=== PATIENT | male | born 1960 | race Caucasian/White ===

== ENCOUNTER 2019-10-29 08:07 | Emergency (ER) | payer OTHER ==
[~2019-10-29] VITALS: Ht 182.8 cm; Wt 113.6 kg
[2019-10-29] MEDS ORDERED: NS IV 1000 ML 1,000 ML IV STA (08:34)
[2019-10-29] MEDS ORDERED: ONDANSETRON 4 MG/2 ML (SDV) Z0FRAN IVP STA (08:34)
--- NOTE | 2019-10-29 08:42 | ED General ---
General Chief Complaint: Dizziness/Syncope Stated Complaint: DIZZINESS Nursing Triage Note: Patient reports he woke at 5 am and was unable to go back to sleep, so he went downstairs and watched TV. He states he went back to bed around 0715 and the ceiling began "spinning." He also reports a flushed feeling and developed nausea while driving to the ED. Nursing Sepsis Screen: No Definite Risk Source of Information: Patient History of Present Illness Date Seen by Provider: Oct 29, 2019 Time Seen by Provider: 08:12 Initial Comments 59-year-old male presenting with complaints of feeling dizzy and lightheaded. He states he woke up early this morning and couldn't get back to sleep. He then dev eloped sudden onset of room spinning around 7:[address] to the Emergency Department he started feeling flushed and developed nausea. He felt like he was sweating this morning on the way to the emergency department and was getting nauseated. He did have dry heaves and nausea in the emergency department. He denies having pain anywhere. He states that he was feeling fine when he went to bed. He had this come on all of a sudden for him. He denies any ill contacts. He has had no diarrhea. He had a normal bowel movement yesterday. He denies having any headache or change in his vision. Allergies and Home Medications Allergies Coded Allergies: Penicillins (Verified Allergy, Unknown, 10/29/19) Home Medications Ondansetron 4 Mg Tab.rapdis, 4 MG PO Q6H PRN for NAUSEA/VOMITING Prescribed by: LACEY WASHINGTON on 10/29/19 1125 Patient Home Medication List Home Medication List Reviewed: Yes Review of Systems Review of Systems Constitutional: No chills; dizziness; No fever; malaise EENTM: No ear discharge, No ear pain, No blurred vision, No hoarseness, No nose congestion Respiratory: No cough Cardiovascular: No chest pain Gastrointestinal: No abdominal pain; nausea, vomiting Genitourinary: No dysuria Musculoskeletal: no symptoms reported Skin: no symptoms reported Psychiatric/Neurological: Denies Headache Hematologic/Lymphatic: No Symptoms Reported Past Efopweh-Vcqbvl-Eeyuyr Hx Past Med/Social Hx: Reviewed Nursing Past Med/Soc Hx Patient Social History Recent Foreign Travel: No Contact w/Someone Who Travel: No Recent Infectious Disease Expo: No Past Medical History Surgeries: No Cardiac: Yes High Cholesterol, Hypertension Physical Exam Vital Signs Vital Signs - First Documented 10/29/19 08:31 Temp 36.7 Pulse 78 Resp 18 B/P (MAP) 144/90 (108) Pulse Ox 93 O2 Delivery Room Air Capillary Refill : Less Than 3 Seconds Height, Weight, BMI Height: '" Weight: lbs. oz. kg; 33.00 BMI Method: General Appearance: WD/WN, Anxious, Other (diaphoretic) HEENT: PERRL/EOMI, Normal ENT Inspection, Pharynx Normal Neck: Full Range of Motion, Normal Inspection, Non Tender, Supple Respiratory: Chest Non Tender, Lungs Clear, Normal Breath Sounds, No Accessory Muscle Use, No Respiratory Distress Cardiovascular: Regular Rate, Rhythm, No Edema, Normal Peripheral Pulses Gastrointestinal: Normal Bowel Sounds, No Pulsatile Mass, Non Tender, Soft Rectal: Deferred Extremity: Normal Capillary Refill, No Pedal Edema Neurologic/Psychiatric: Alert, Oriented x3, No Motor/Sensory Deficits Skin: Normal Color, Diaphoresis Progress/Results/Core Measures Suspected Sepsis Recent Fever Within 48 Hours: No Infection Criteria Present: None New/Unexplained Altered Menta: No Sepsis Screen: No Definite Risk SIRS Temperature: Pulse: 78 Respiratory Rate: 18 Laboratory Tests 10/29/19 08:25: White Blood Count 7.0 Blood Pressure 144 /90 Mean: 108 Laboratory Tests 10/29/19 08:25: Creatinine 1.12, INR Comment 0.9, Platelet Count 243, Total Bilirubin 0.6 Results/Orders Lab Results Laboratory Tests Test 10/29/19 08:25 10/29/19 10:24 Range/Units White Blood Count 7.0 4.3-11.0 10^3/uL Red Blood Count 5.56 4.35-5.85 10^6/uL Hemoglobin 16.7 13.3-17.7 G/DL Hematocrit 50 40-54 % Mean Corpuscular Volume 91 80-99 FL Mean Corpuscular Hemoglobin 30 25-34 PG Mean Corpuscular Hemoglobin Concent 33 32-36 G/DL Red Cell Distribution Width 13.5 10.0-14.5 % Platelet Count 243 130-400 10^3/uL Mean Platelet Volume 10.1 7.4-10.4 FL Neutrophils (%) (Auto) 49 42-75 % Lymphocytes (%) (Auto) 37 12-44 % Monocytes (%) (Auto) 10 0-12 % Eosinophils (%) (Auto) 4 0-10 % Basophils (%) (Auto) 1 0-10 % Neutrophils # (Auto) 3.4 1.8-7.8 X 10^3 Lymphocytes # (Auto) 2.6 1.0-4.0 X 10^3 Monocytes # (Auto) 0.7 0.0-1.0 X 10^3 Eosinophils # (Auto) 0.3 0.0-0.3 10^3/uL Basophils # (Auto) 0.1 0.0-0.1 10^3/uL Prothrombin Time 12.7 12.2-14.7 SEC INR Comment 0.9 0.8-1.4 Activated Partial Thromboplast Time 23 L 24-35 SEC Sodium Level 139 135-145 MMOL/L Potassium Level 4.1 3.6-5.0 MMOL/L Chloride Level 103 98-107 MMOL/L Carbon Dioxide Level 23 21-32 MMOL/L Anion Gap 13 5-14 MMOL/L Blood Urea Nitrogen 21 H 7-18 MG/DL Creatinine 1.12 0.60-1.30 MG/DL Estimat Glomerular Filtration Rate > 60 BUN/Creatinine Ratio 19 Glucose Level 142 H 70-105 MG/DL Calcium Level 9.3 8.5-10.1 MG/DL Corrected Calcium 9.1 8.5-10.1 MG/DL Magnesium Level 2.0 1.6-2.4 MG/DL Total Bilirubin 0.6 0.1-1.0 MG/DL Aspartate Amino Transf (AST/SGOT) 36 H 5-34 U/L Alanine Aminotransferase (ALT/SGPT) 39 0-55 U/L Alkaline Phosphatase 78 40-136 U/L Troponin I < 0.30 <0.30 NG/ML Pro-B-Type Natriuretic Peptide 25.5 <75.0 PG/ML Total Protein 7.1 6.4-8.2 GM/DL Albumin 4.3 3.2-4.5 GM/DL Lipase 41 8-78 U/L Urine Color YELLOW Urine Clarity CLEAR Urine pH 7.0 5-9 Urine Specific [place] 1.015 L 1.016-1.022 Urine Protein NEGATIVE NEGATIVE Urine Glucose (UA) NEGATIVE NEGATIVE Urine Ketones NEGATIVE NEGATIVE Urine Nitrite NEGATIVE NEGATIVE Urine Bilirubin NEGATIVE NEGATIVE Urine Urobilinogen 0.2 < = 1.0 MG/DL Urine Leukocyte Esterase NEGATIVE NEGATIVE Urine RBC (Auto) NEGATIVE NEGATIVE Urine RBC NONE /HPF Urine WBC 0-2 /HPF Urine Squamous Epithelial Cells NONE /HPF Urine Crystals NONE /LPF Urine Bacteria NEGATIVE /HPF Urine Casts NONE /LPF Urine Mucus SMALL H /LPF Urine Culture Indicated NO My Orders Orders - LACEY WASHINGTON MD Ua Culture If Indicated (10/29/19 08:20) Cbc With Automated Diff (10/29/19 08:34) Magnesium (10/29/19 08:34) Ekg Tracing (10/29/19 08:34) Comprehensive Metabolic Panel (10/29/19 08:34) Protime With Inr (10/29/19 08:34) Partial Thromboplastin Time (10/29/19 08:34) Monitor-Rhythm Ecg Trace Only (10/29/19 08:34) Ed Iv/Invasive Line Start (10/29/19 08:34) Lipase (10/29/19 08:34) Troponin I Fs (10/29/19 08:34) Probnp Fs (10/29/19 08:34) Chest Pa/Lat (2 View) (10/29/19 08:34) Ns Iv 1000 Ml (Sodium Chloride 0.9%) (10/29/19 08:34) Ondansetron Injection (Zofran Injectio (10/29/19 08:34) Vital Signs/I&O 10/29/19 10/29/19 08:31 12:06 Temp 36.7 Pulse 78 65 Resp 18 16 B/P (MAP) 144/90 (108) 138/79 Pulse Ox 93 94 O2 Delivery Room Air Room Air Capillary Refill : Less Than 3 Seconds Blood Pressure Mean: 108 POS Progress Note #1: Progress Note Check basic labs and give IV fluids for hydration. Obtain electrocardiogram as well as chest x-ray to evaluate his sudden onset of dizziness. Progress Note #2: Progress Note No acute ST elevation or changes on his EKG. His chest x-ray is clear without acute abnormality. His CBC and chemistry did not show any acute abnormalities to explain his acute onset of dizziness and nausea with dry heaves. His fluids are infusing and the Zofran has been given. Will allow the medicine to work and recheck the patient to see if he is feeling any better. Progress Note #3: Progress Note On recheck patient was able to finally provide a urine specimen after the liter of fluids finished infusing. The urinalysis does not demonstrate any acute abnormality other than he had a specific gravity of 1.015. He was feeling better and was tolerating oral intake. Will discharge home with some Zofran ODT if needed. Encourage fluids and rest. Counseled that this may still just be a viral illness. Advised that his fasting glucose was slightly elevated at 142 and this may be from stress reaction with his dizziness and dry heaves but he should follow-up and get repeat fasting blood work to verify that this is not prediabetes or some borderline type 2 diabetes. Given information about the [facility] clinic for follow-up. ECG Initial ECG Impression Date: Oct 29, 2019 Initial ECG Impression Time: :19 Initial ECG Rate: 67 Initial ECG Rhythm: Normal Sinus Initial ECG Comparisson: No Previous ECG Available Comment Sinus rhythm with a heart rate of 67 bpm. ND interval 168 ms. QT interval 432 ms with a QT corrected interval 456 ms. He has low voltage in his precordial leads. He has no acute ST elevation. He has no prior tracings for comparison. Diagnostic Imaging Diagonstic Imaging: Xray Plain Films/CT/US/NM/MRI: chest Comments NAME: BERTHA HERZOG MED REC#: [id number] PT STATUS: REG ER : 1960 PHYSICIAN: LACEY WASHINGTON MD ADMIT DATE: 10/29/19/ER FS Signed POSDate of Exam:10/29/19 CHEST PA/LAT (2 VIEW) CHEST PA/LAT (2 VIEW) Indication: Dizziness and nausea Comparison: None available. Findings: No pulmonary mass or consolidation. No pleural effusion or pneumothorax. Normal heart size and mediastinal contours. Impression: No acute cardiopulmonary process. Dictated by: Dictated on workstation # [id number] Dict: 10/29/19916 Trans: 10/29/19916 [facility] [id number] Interpreted by: ALEC DRISCOLL MD Electronically signed by: ALEC DRISCOLL MD 10/29/19916 Departure Impression Primary Impression: Dizziness Additional Impressions: Dehydration Viral syndrome Elevated fasting glucose Disposition: 01 HOME, SELF-CARE Condition: Improved Departure-Patient Inst. Decision time for Depature: 11:20 Referrals: NO,LOCAL PHYSICIAN (PCP) [place] Care Phys[place] [facility] [place] Instructions: Dizziness, Nonvertigo, (DC), Viral Syndrome (DC), Dehydration, Adult (DC) Add. Discharge Instructions: Make sure you are drinking plenty of fluids and staying well hydrated. Check back with clinic and get established with a primary provider for follow up and to recheck your fasting labs since your sugar was slightly elevated this morning. Get plenty of rest and drink plenty of fluids today. All discharge instructions reviewed with patient and/or family. Voiced unde rstanding. Scripts Ondansetron (Ondansetron Odt) 4 Mg Tab.rapdis 4 MG PO Q6H PRN for NAUSEA/VOMITING for 2 Days, #8 TAB 0 Refills Prov: LACEY WASHINGTON MD 10/29/19 LACEY WASHINGTON MD Oct 29, 2019 08:42 POS
[2019-10-29 08:47] LABS: BASOPHILS % (AUTO) 1 % (0-10); EOSINOPHILS % (AUTO) 4 % (0-10); HEMATOCRIT 50 % (40-54); HEMOGLOBIN 16.7 G/DL (13.3-17.7); LYMPHOCYTES # (AUTO) 2.6 X 10^3 (1.0-4.0); LYMPHOCYTES % (AUTO) 37 % (12-44); MEAN CORPUSCULAR HEMOGLOBIN 30 PG (25-34); MEAN CORPUSCULAR HGB CONC 33 G/DL (32-36); MEAN CORPUSCULAR VOLUME 91 FL (80-99); MEAN PLATELET VOLUME 10.1 FL (7.4-10.4); MONOCYTES # (AUTO) 0.7 X 10^3 (0.0-1.0); MONOCYTES % (AUTO) 10 % (0-12); NEUTROPHILS # (AUTO) 3.4 X 10^3 (1.8-7.8); NEUTROPHILS % (AUTO) 49 % (42-75); PLATELET COUNT 243 10^3/uL (130-400); RED CELL DISTRIBUTION WIDTH 13.5 % (10.0-14.5)
[2019-10-29 08:48] LABS: BASOPHILS # (AUTO) 0.1 10^3/uL (0.0-0.1); EOSINOPHILS # (AUTO) 0.3 10^3/uL (0.0-0.3)
[2019-10-29 09:09] LABS: INR 0.9 (0.8-1.4); PROTHROMBIN TIME PATIENT 12.7 SEC (12.2-14.7)
[2019-10-29 09:18] LABS: CARBON DIOXIDE 23 MMOL/L (21-32); CHLORIDE 103 MMOL/L (98-107); POTASSIUM 4.1 MMOL/L (3.6-5.0); SODIUM 139 MMOL/L (135-145)
[2019-10-29 09:19] LABS: ALANINE AMINOTRANSFERASE 39 U/L (0-55); ALBUMIN 4.3 GM/DL (3.2-4.5); ALKALINE PHOSPHATASE 78 U/L (40-136); BILIRUBIN,TOTAL 0.6 MG/DL (0.1-1.0); BUN/CREATININE RATIO 19; CALCIUM 9.3 MG/DL (8.5-10.1); CREATININE SERUM 1.12 MG/DL (0.60-1.30); GFR ESTIMATED > 60; GLUCOSE 142 MG/DL (70-105); LIPASE 41 U/L (8-78); TOTAL PROTEIN 7.1 GM/DL (6.4-8.2)
--- NOTE | 2019-10-29 09:19 | Diagnostic Imaging Report ---
CHEST PA/LAT (2 VIEW) Indication: Dizziness and nausea Comparison: None available. Findings: No pulmonary mass or consolidation. No pleural effusion or pneumothorax. Normal heart size and mediastinal contours. Impression: No acute cardiopulmonary process. Dictated by: Dictated on workstation # [id number]
[2019-10-29 10:52] LABS: CLARITY,URINE CLEAR; COLOR,URINE YELLOW; PROTEIN,URINE NEGATIVE (NEGATIVE)
[2019-10-29 10:53] LABS: BACTERIA,URINE NEGATIVE /HPF; BILIRUBIN,URINE NEGATIVE (NEGATIVE); GLUCOSE, URINE (UA) NEGATIVE (NEGATIVE); KETONES,URINE NEGATIVE (NEGATIVE); LEUKOCYTE ESTERASE ,URINE NEGATIVE (NEGATIVE); NITRITE,URINE NEGATIVE (NEGATIVE); WBC,URINE 0-2 /HPF
[2019-10-29] MEDS ORDERED: ONDA4TAB11 PO (11:25)
[2019-10-29 12:06] VITALS: BP 138/79
--- OUTSIDE RECORDS SUMMARY | 2019-11-24 05:53 | XMS REPORT | Continuity of Care Document ---
Author Organization Unknown Address Unknown Phone Unavailable Allergies Active Description Code Type Severity Reaction Onset Reported/Identified Relationship to Patient Clinical Status Yes Penicillins [id number] Drug Aller gy Unknown N/A 10/29/2019 Medications There is no data. Problems Date Dx Coded Attending Type Code Diagnosis Diagnosed By 11/02/2019 LACEY WASHINGTON MD, Ot B34.9 VIRAL INFECTION, UNSPECIFIED 11/02/2019 LACEY WASHINGTON MD, Ot E78.0 0 PURE HYPERCHOLESTEROLEMIA, UNSPECIFIED 11/02/2019 LACEY WASHINGTON MD, Ot E86.0 DEHYDRATION 11/02/2019 LACEY WASHINGTON MD, Ot I10 ESSENTIAL (PRIMARY) HYPERTENSION 11/02/2019 LACEY WASHINGTON MD, Ot R42 DIZZINESS AND GIDDINESS 11/02/2019 LACEY WASHINGTON MD, Ot R73.0 9 OTHER ABNORMAL GLUCOSE 11/02/2019 LACEY WASHINGTON MD, Ot Z88.0 ALLERGY STATUS TO PENICILLIN Procedures There is no data. Results Test Result Range Complete blood count (CBC) with automate d white blood cell (WBC) differential - 10/29/19 08:25 Blood leukocytes automated count (number/volume) 7.0 10*3/uL 4.3-11.0 Blood erythrocytes automated count (number/volume) 5.56 10*6/uL 4.35-5.85 Venous blood hemoglobin measurement (mass/volume) 16.7 g/dL 13.3-17.7 Blood hematocrit (volume fraction) 50 % 40-54 Automated erythrocyte mean corpuscular volume 91 [ foz_us] 80-99 Automated erythrocyte mean corpuscular h emoglobin (mass per erythrocyte) 30 pg 25-34 Automated erythrocyte mean corpuscular h emoglobin concentration measurement (mass/volume) 33 g/dL 32-36 Automated erythrocyte distribution width ratio 13. 5 % 10.0- 14.5 Automated blood platelet count (count/volume) 243 10*3/uL 130-400 Automated blood platelet mean volume measurement 10.1 [foz_us] 7.4-10.4 Automated blood neutrophils/100 leukocytes 49 % 42-75 Automated blood lymphocytes/100 leukocytes 37 % 12-44 Blood monocytes/100 leukocytes 10 % 0-12 Automated blood eosinophils/100 leukocytes 4 % 0-10 Automated blood basophils/100 leukocytes 1 % 0-10 Blood neutrophils automated count (number/volume) 3.4 10*3 1.8-7.8 Blood lymphocytes automated count (number/volume) 2.6 10*3 1.0-4.0 Blood monocytes automated count (number/volume) 0. 7 10*3 0.0-1.0 Automated eosinophil count 0.3 10*3/uL 0 .0-0.3 Automated blood basophil count (count/volume) 0.1 10*3/uL 0.0-0.1 PT panel in platelet poor plasma by coag ulation assay - 10/29/19 08:25 Prothrombin time (PT) in platelet poor plasma by coagu lation assay 12.7 s 12.2-14.7 INR in platelet poor plasma or blood by coagulation as say 0.9 0.8-1.4 Activated partial thromboplastin time (a PTT) in platelet poor plasma bycoagulation assay - 10/29/19 08:25 Activated partial thromboplastin time (a PTT) in platelet poor plasma bycoagulation assay 23 s 24-35 Comprehensive metabolic panel - 10/29/19 08:25 Serum or plasma sodium measurement (moles/volume) 139 mmol/L 135-145 Serum or plasma potassium measurement (moles/volume) 4.1 mmol/L 3.6-5.0 Serum or plasma chloride measurement (moles/volume) 103 mmol/L 98-107 Carbon dioxide 23 mmol/L 21-32 Serum or plasma anion gap determination (moles/volume) 13 mmol/L 5-14 Serum or plasma urea nitrogen measurement (mass/volume ) 21 mg/dL 7-18 Serum or plasma creatinine measurement (mass/volume) 1.12 mg/dL 0.60-1.30 Serum or plasma urea nitrogen/creatinine mass ratio 19 NRG Serum or plasma creatinine measurement w ith calculation of estimated glomerular filtration rate > NRG Serum or plasma glucose measurement (mass/volume) 142 mg/dL 70-105 Serum or plasma calcium measurement (mass/volume) 9.3 mg/dL 8.5-10.1 Serum or plasma total bilirubin measurement (mass/volu me) 0.6 mg/dL 0.1-1.0 Serum or plasma alkaline phosphatase javi surement (enzymatic activity/volume) 78 U/L 40-136 Serum or plasma aspartate aminotransfera se measurement (enzymatic activity/volume) 36 U/L 5-34 Serum or plasma alanine aminotransferase measurement (enzymatic activity/volume) 39 U/L 0-55 Serum or plasma protein measurement (mass/volume) 7.1 g/dL 6.4-8.2 Serum or plasma albumin measurement (mass/volume) 4.3 g/dL 3.2-4.5 CALCIUM CORRECTED 9.1 mg/dL 8.5-10.1 Magnesium - 10/29/19 08:25 Magnesium 2.0 mg/dL 1.6-2.4 Lipase - 10/29/19 08:25 Lipase 41 U/L 8-78 TROPONIN I FS - 10/29/19 08:25 TROPONIN I FS < 0.30 <0.30 PROBNP FS - 10/29/19 08:25 PROBNP FS 25.5 pg/mL <75.0 Complete urinalysis with reflex to cultu re - 10/29/19 10:24 Urine color determination YELLOW NRG Urine clarity determination CLEAR NR G Urine pH measurement by test strip 7.0 5-9 Specific gravity of urine by test strip 1.015 1.016-1.022 Urine protein assay by test strip, semi-quantitative NEGATIVE NEGATIVE Urine glucose detection by automated test strip NE GATIVE NEGATIVE Erythrocytes detection in urine sediment by light micr oscopy NEGATIVE NEGATIVE Urine ketones detection by automated test strip NE GATIVE NEGATIVE Urine nitrite detection by test strip NEGATIVE NEGATIVE Urine total bilirubin detection by test strip NEGA TIVE NEGATIVE Urine urobilinogen measurement by automated test strip (mass/volume) 0.2 mg/dL < = 1.0 Urine leukocyte esterase detection by dipstick NEG ATIVE NEGATIVE Automated urine sediment erythrocyte cou nt by microscopy (number/high power field) NONE NRG Automated urine sediment leukocyte count by microscopy (number/high power field) [HPF] NRG Bacteria detection in urine sediment by light microsco py NEGATIVE NRG Squamous epithelial cells detection in u rine sediment by light microscopy NONE NRG Crystals detection in urine sediment by light microsco py NONE NRG Casts detection in urine sediment by light microscopy NONE NRG Mucus detection in urine sediment by light microscopy SMALL NRG Complete urinalysis with reflex to culture NO NRG Encounters ACCT No. Visit Date/Time Discharge Status Pt. Type Provider Facility Loc./Unit Complaint [id number] 10/29/2019 08:12:00 019 12:00:00 DIS Outpatient PADMINI DE LA GARZA, LACEY [facility] ER FS DIZZINESS
== END 2019-10-29 12:00 | disposition home or self-care (01) ==
LOC: ER FS 08:12
DX: R42 Dizziness and giddiness (principal); E86.0 Dehydration; B34.9 Viral infection, unspecified; R73.09 Other abnormal glucose; I10 Essential (primary) hypertension; E78.00 Pure hypercholesterolemia, unspecified; Z88.0 Allergy status to penicillin
CPT/HCPCS: 36415; 71046; 80053; 81000; 83690; 83735; 83880; 84484; 85025; 85610; 85730; 93005; 93041; 96361; 96374